=== PATIENT | female | born 1985 | race Caucasian/White ===

== ENCOUNTER 2021-01-29 18:05 | Inpatient (IN) | payer OTHER ==
[~2021-01-29] VITALS: Ht 152.4 cm; Wt 77.0 kg
[2021-01-29] MEDS ORDERED: GABA-534 PO (18:29)
[2021-01-29] MEDS ORDERED: BUPR150T8 PO (18:29)
[2021-01-29] MEDS ORDERED: TRAM50TA2 PO (18:29)
[2021-01-29] MEDS ORDERED: METH-797 PO (18:29)
[2021-01-29 18:56] LABS: BASOPHILS % (AUTO) 0.1 % (0-1); EOSINOPHILS % (AUTO) 0.1 % (0-6); HEMATOCRIT 36.6 % (35.0-45.0); HEMOGLOBIN 12.8 g/dl (12.0-16.0); MEAN CORPUSCULAR HEMOGLOBIN 32.4 PG (27.0-31.0); MEAN CORPUSCULAR HGB CONC 34.9 g/dL (33.0-36.5); MEAN CORPUSCULAR VOLUME 92.9 FL (78-98); MEAN PLATELET VOLUME 8.5 FL (7.4-10.4); MONOCYTES # (AUTO) 0.2 X10'3 (0-0.9); MONOCYTES % (AUTO) 5.8 % (2-12); NEUTROPHILS # (AUTO) 2.8 X10'3 (1.8-7.7); PLATELET COUNT 166 X10'3 (140-440); RED BLOOD COUNT 3.94 X10'6 (4.20-5.60); RED CELL DISTRIBUTION WIDTH 12.5 % (11.5-14.5); WHITE BLOOD COUNT 4.1 X10'3 (4.5-11.0)
[2021-01-29 19:14] LABS: ALANINE AMINOTRANSFERASE 70 U/L (12-78); ALBUMIN 2.6 G/DL (3.4-5.0); ALBUMIN/GLOBULIN RATIO 0.6 (1.1-1.5); ALKALINE PHOSPHATASE 104 IU/L (46-116); ANION GAP 10 (8-16); ASPARTATE AMINO TRANSFERASE 118 U/L (10-37); BILIRUBIN,TOTAL 0.4 MG/DL (0.1-1.0); BLOOD UREA NITROGEN 8 MG/DL (7-18); BUN/CREATININE RATIO 10.3 (6.6-38.0); CALCIUM 7.8 MG/DL (8.5-10.1); CHLORIDE 104 MMOL/L (99-107); CREATININE 0.78 MG/DL (0.40-0.90); GLUCOSE 100 MG/DL (70-104); SODIUM 143 MMOL/L (135-145); TOTAL CARBON DIOXIDE 29.5 MMOL/L (24-32); TOTAL PROTEIN 6.9 G/DL (6.4-8.2); eGFR 85 ML/MIN
[2021-01-29] MEDS ORDERED: dexamethasone 4mg tablet PO ONE (20:40)
[2021-01-29] MEDS ORDERED: temazepam 15mg capsule PO PRN (21:00)
[2021-01-29] MEDS ORDERED: potassium Cl 20 mEq SR tablet PO ONE (21:40)
[2021-01-29] MEDS ORDERED: potassium Cl 10 mEq/100mL bag IV ONE (21:40)
[2021-01-29] MEDS ORDERED: potassium Cl 40MEQ/1/2NS 520ml 520 ML IV PRN ×2 (23:35)
[2021-01-29] MEDS ORDERED: magnesium 4gm in 100ml NS 100 ML IV PRN (23:35)
[2021-01-29] MEDS ORDERED: ondansetron/PF 4mg/2ml inj IV PRN (23:35)
[2021-01-29] MEDS ORDERED: magnesium Cl slow-release 64mg tablet PO PRN (23:35)
[2021-01-29] MEDS ORDERED: magnesium 2GM in 50ml NS 50 ML IV PRN (23:35)
[2021-01-29] MEDS ORDERED: potassium Cl 20 mEq SR tablet PO PRN ×2 (23:35)
[2021-01-29] MEDS ORDERED: magnesium hydroxide 30ml (MOM) UD suspension PO PRN (23:35)
[2021-01-29] MEDS ORDERED: acetaminophen 325mg tablet PO PRN ×2 (23:35)
[2021-01-29] MEDS ORDERED: HYDROcodone/acetaminophen 5mg/325mg tablet PO ONE (23:45)
[2021-01-29 23:50] LABS: URINE HCG NEGATIVE (NEG)
[2021-01-30] MEDS: normal saline 1000ml 1,000 ML IV SCH (00:08)
[2021-01-30] MEDS ORDERED: PERFLUTREN PROTEIN-A MICROSPHR (Optison) 0.22 MG/ML 3ML VIAL IV PRN (00:20)
[2021-01-30] MEDS ORDERED: CefTRIAXone 2gm/D5W 50ml BAG 50 ML IV ONE (00:25)
[2021-01-30 01:26] LABS: CLARITY,URINE CLEAR (Clear); COLOR,URINE YELLOW (Yellow); GLUCOSE, URINE NEGATIVE (Neg); KETONES,URINE 15 mg/dl (Neg); OCCULT BLOOD,URINE NEGATIVE (Neg); PH,URINE 7.5 (4.8-8.0); PROTEIN,URINE NEGATIVE (Neg); UA COLLECTION TYPE NON-SPECIFIED
[2021-01-30 01:27] LABS: LEUKOCYTE ESTERASE ,URINE NEGATIVE (Neg); NITRITES, URINE NEGATIVE (Neg); UROBILINOGEN,URINE 0.2 E.U/dL (0.2-1.0)
[2021-01-30 01:47] LABS: URINE AMPHETAMINE SCREEN NEGATIVE (Neg); URINE BARBITUATE SCREEN NEGATIVE (Neg); URINE BENZODIAZEPINES SCREEN NEGATIVE (Neg); URINE CANNABINOID SCREEN NEGATIVE (Neg); URINE COCAINE SCREEN NEGATIVE (Neg); URINE METHADONE SCREEN NEGATIVE (Neg); URINE OPIATE SCREEN NEGATIVE (Neg); URINE PHENCYCLIDINE SCREEN NEGATIVE (Neg)
[2021-01-30 02:38] LABS: ABG BASE EXCESS 4.1 mmol/L (-2.0-2.0); ABG HCO3 28.2 mmol/L (22.0-26.0); ABG OXYGEN SATURATION 86.3 % (94-97); ABG PCO2 (T) 41.1 mmHg (32.0-45.0); ABG PO2 (T) 53.2 mmHg (75.0-100.0); ALLEN'S TEST POSITIVE; FCOHb 0.3 % (0.0-3.9); FLOW 3 L/min; FMetHb 0.3 % (0.0-1.5); FO2Hb 85.8 % (94-97); PATIENT TEMPERATURE 37.4; TOTAL HEMOGLOBIN 13.1 G/dl (12.0-16.0)
--- NOTE | 2021-01-30 04:10 | NUR ---
pt placed on NRB 10L due to spo2 85-87% on 6L NC. now sats 95-96%
[2021-01-30] MEDS ORDERED: BUPR-344 PO (06:41)
[2021-01-30 07:14] LABS: BASOPHILS % (AUTO) 0.1 % (0-1); EOSINOPHILS % (AUTO) 0 % (0-6); HEMATOCRIT 36.6 % (35.0-45.0); HEMOGLOBIN 12.7 g/dl (12.0-16.0); LYMPHOCYTES # (AUTO) 0.5 X10'3 (1.1-4.8); LYMPHOCYTES % (AUTO) 14.7 % (21-51); MEAN CORPUSCULAR HEMOGLOBIN 32.6 PG (27.0-31.0); MEAN CORPUSCULAR HGB CONC 34.7 g/dL (33.0-36.5); MEAN PLATELET VOLUME 8.6 FL (7.4-10.4); MONOCYTES # (AUTO) 0.1 X10'3 (0-0.9); MONOCYTES % (AUTO) 3.8 % (2-12); NEUTROPHILS # (AUTO) 2.6 X10'3 (1.8-7.7); NEUTROPHILS % (AUTO) 81.4 % (42-75); PLATELET COUNT 156 X10'3 (140-440); RED BLOOD COUNT 3.89 X10'6 (4.20-5.60); RED CELL DISTRIBUTION WIDTH 12.5 % (11.5-14.5); WHITE BLOOD COUNT 3.2 X10'3 (4.5-11.0)
[2021-01-30 07:35] LABS: ALANINE AMINOTRANSFERASE 76 U/L (12-78); ALBUMIN 2.5 G/DL (3.4-5.0); ALBUMIN/GLOBULIN RATIO 0.6 (1.1-1.5); ALKALINE PHOSPHATASE 103 IU/L (46-116); ANION GAP 9 (8-16); ASPARTATE AMINO TRANSFERASE 112 U/L (10-37); BILIRUBIN,TOTAL 0.3 MG/DL (0.1-1.0); BLOOD UREA NITROGEN 10 MG/DL (7-18); BUN/CREATININE RATIO 16.7 (6.6-38.0); CHLORIDE 108 MMOL/L (99-107); GLUCOSE 139 MG/DL (70-104); MAGNESIUM 2.5 MG/DL (1.5-2.4); POTASSIUM 4.3 MMOL/L (3.5-5.1); SODIUM 143 MMOL/L (135-145); TOTAL CARBON DIOXIDE 26.3 MMOL/L (24-32); TOTAL PROTEIN 6.8 G/DL (6.4-8.2); eGFR > 90 ML/MIN
[2021-01-30] MEDS ORDERED: heparin, porcine 5000 units/ml vial SQ SCH (08:00)
[2021-01-30] MEDS: K and/or MAG REPLACEMENT MC SCH ×2 (10:00→19:51)
[2021-01-30] MEDS ORDERED: REMDESIVIR INJ 200 MG in normal saline 100ml IV soln 60 ML IV ONE (10:55)
[2021-01-30] MEDS: buPROPion SR 150mg tablet PO SCH ×2 (11:03→21:47)
[2021-01-30] MEDS: gabapentin 400mg capsule PO SCH (11:03)
[2021-01-30 11:31] LABS: C-REACTIVE PROTEIN 6.64 MG/DL (0.0-0.5); LACTATE DEHYDROGENASE 807 U/L (81-234)
[2021-01-30] MEDS: dexamethasone 6 MG/D5W 100ml IV.soln (total 101.5ml) IV SCH ×4 (12:42→19:46)
[2021-01-30] MEDS: traMADol 50MG tablet PO SCH ×3 (13:48→21:00)
--- NOTE | 2021-01-30 18:30 | NUR ---
ASSUMED CARE OF PT. PT REPORTS INDIGESTION AND WISHES TO EAT SOMETHING. SHE ALSO NOTES CHRONIC NERVE PAIN ON THIGH.
[2021-01-30] MEDS: mag hydrox/Alum hydrox/simeth 30ml oral suspension PO PRN (19:45)
[2021-01-30] MEDS: enoxaparin 40mg/0.4ml syringe SUBCUT SCH (19:53)
[2021-01-30] MEDS ORDERED: dexamethasone 4mg/ml inj IV SCH ×2 (20:00)
--- NOTE | 2021-01-30 20:04 | NUR ---
PT SITTING UP EATING DINNER. PT MEDICATED. NO OTHER COMPLAINTS AT PRESENT.
--- NOTE | 2021-01-30 21:20 | NUR ---
SPOKE TO DR LENZ OVER PT'S CHRONIC THIGH PAIN. PT IS CONCERNED SHE IS UNABLE TO PRONE D/T HER PAIN AND STATES THAT HER TRAMADOL DOSES ARE NOT WORKING. DR LENZ GAVE A VERBAL ORDER FOR NORCO 10 PO Q4 PRN FOR PAIN.
--- NOTE | 2021-01-30 22:45 | NUR ---
Got report from KOJO Donnelly from ER. S. Coming up on a bed.
[2021-01-31] VITALS (8 sets, daily range): BP systolic 86–113; BP diastolic 44–66
[2021-01-31] MEDS ORDERED: HYDROcodone/acetaminophen 10/325mg tab PO PRN
[2021-01-31] MEDS: HYDROcodone/acetaminophen 10/325mg tab PO PRN ×5 (04:15→22:40)
[2021-01-31] MEDS: normal saline 1000ml 1,000 ML IV SCH (04:16)
--- NOTE | 2021-01-31 06:38 | NUR ---
Patient in room ORTHO 4012a. I have received report from KOJO De La O and had the opportunity to ask questions and assume patient care.
--- NOTE | 2021-01-31 06:42 | NUR ---
Problems reprioritized. Patient report given, questions answered & plan of care reviewed with KOJO Katz.
[2021-01-31 06:48] LABS: BASOPHILS % (AUTO) 0.1 % (0-1); EOSINOPHILS % (AUTO) 0 % (0-6); HEMATOCRIT 36.8 % (35.0-45.0); HEMOGLOBIN 12.7 g/dl (12.0-16.0); LYMPHOCYTES # (AUTO) 0.8 X10'3 (1.1-4.8); LYMPHOCYTES % (AUTO) 10.2 % (21-51); MEAN CORPUSCULAR HEMOGLOBIN 32.4 PG (27.0-31.0); MEAN CORPUSCULAR HGB CONC 34.6 g/dL (33.0-36.5); MEAN CORPUSCULAR VOLUME 93.7 FL (78-98); MEAN PLATELET VOLUME 8.4 FL (7.4-10.4); MONOCYTES # (AUTO) 0.4 X10'3 (0-0.9); MONOCYTES % (AUTO) 5.1 % (2-12); NEUTROPHILS # (AUTO) 6.7 X10'3 (1.8-7.7); NEUTROPHILS % (AUTO) 84.6 % (42-75); PLATELET COUNT 158 X10'3 (140-440); RED BLOOD COUNT 3.93 X10'6 (4.20-5.60); RED CELL DISTRIBUTION WIDTH 12.6 % (11.5-14.5); WHITE BLOOD COUNT 7.9 X10'3 (4.5-11.0)
[2021-01-31 07:12] LABS: ALANINE AMINOTRANSFERASE 122 U/L (12-78); ALBUMIN 2.4 G/DL (3.4-5.0); ALBUMIN/GLOBULIN RATIO 0.6 (1.1-1.5); ALKALINE PHOSPHATASE 108 IU/L (46-116); ANION GAP 8 (8-16); ASPARTATE AMINO TRANSFERASE 141 U/L (10-37); BILIRUBIN,TOTAL 0.3 MG/DL (0.1-1.0); BLOOD UREA NITROGEN 11 MG/DL (7-18); C-REACTIVE PROTEIN 3.29 MG/DL (0.0-0.5); CHLORIDE 106 MMOL/L (99-107); CREATININE 0.61 MG/DL (0.40-0.90); GLUCOSE 137 MG/DL (70-104); MAGNESIUM 2.5 MG/DL (1.5-2.4); POTASSIUM 3.7 MMOL/L (3.5-5.1); SODIUM 141 MMOL/L (135-145); TOTAL CARBON DIOXIDE 26.6 MMOL/L (24-32); TOTAL PROTEIN 6.5 G/DL (6.4-8.2); eGFR > 90 ML/MIN
[2021-01-31 07:55] LABS: D-DIMER > 35.20 MG/L FEU (0-0.50)
[2021-01-31] MEDS: K and/or MAG REPLACEMENT MC SCH ×2 (08:00→19:23)
[2021-01-31] MEDS: mag hydrox/Alum hydrox/simeth 30ml oral suspension PO PRN ×2 (08:12→18:57)
[2021-01-31] MEDS: dexamethasone 6 MG/D5W 100ml IV.soln (total 101.5ml) IV SCH ×4 (08:12→19:59)
[2021-01-31] MEDS: buPROPion SR 150mg tablet PO SCH ×2 (08:13→20:00)
[2021-01-31] MEDS: enoxaparin 40mg/0.4ml syringe SUBCUT SCH (08:13)
[2021-01-31] MEDS: gabapentin 400mg capsule PO SCH (08:13)
[2021-01-31] MEDS: REMDESIVIR INJ 100 MG in normal saline 100ml IV soln 80 ML IV SCH (09:58)
[2021-01-31] MEDS ORDERED: enoxaparin 40mg/0.4ml syringe SQ ONE (14:10)
[2021-01-31 14:54] LABS: ABG BASE EXCESS 1.1 mmol/L (-2.0-2.0); ABG HCO3 24.6 mmol/L (22.0-26.0); ABG OXYGEN SATURATION 95.2 % (94-97); ABG PCO2 (T) 36.3 mmHg (32.0-45.0); ABG PO2 (T) 77.6 mmHg (75.0-100.0); ALLEN'S TEST POSITIVE; FCOHb 0.3 % (0.0-3.9); FLOW 15 L/min; FMetHb 0.3 % (0.0-1.5); FO2Hb 94.6 % (94-97); PATIENT TEMPERATURE 37.6; TOTAL HEMOGLOBIN 13.1 G/dl (12.0-16.0)
[2021-01-31] MEDS ORDERED: BARICITINIB 2 MG TABLET PO SCH ×2 (15:50→16:31)
--- NOTE | 2021-01-31 18:23 | NUR ---
Problems reprioritized. Patient report given, questions answered & plan of care reviewed with KOJO Nina.
--- NOTE | 2021-01-31 18:42 | NUR ---
Patient in room ORTHO 4012. I have received report from Gianna VARMA and had the opportunity to ask questions and assume patient care.
[2021-01-31] MEDS: enoxaparin 80mg/0.8ml syringe SUBCUT SCH (20:00)
[2021-02-01 02:00] VITALS: BP 112/64
[2021-02-01] MEDS: HYDROcodone/acetaminophen 10/325mg tab PO PRN ×4 (04:04→20:34)
--- NOTE | 2021-02-01 06:14 | NUR ---
Problems reprioritized. Patient report given, questions answered & plan of care reviewed with Stefanie VARMA. Addendum: 02/01/21 at 0617 by Kelle Randle RN aMry
[2021-02-01 06:30] VITALS: BP 104/59
[2021-02-01 06:59] LABS: BASOPHILS % (AUTO) 0 % (0-1); EOSINOPHILS % (AUTO) 0 % (0-6); HEMATOCRIT 36.7 % (35.0-45.0); HEMOGLOBIN 12.8 g/dl (12.0-16.0); LYMPHOCYTES # (AUTO) 0.8 X10'3 (1.1-4.8); LYMPHOCYTES % (AUTO) 8.5 % (21-51); MEAN CORPUSCULAR HEMOGLOBIN 32.3 PG (27.0-31.0); MEAN CORPUSCULAR HGB CONC 34.9 g/dL (33.0-36.5); MEAN CORPUSCULAR VOLUME 92.7 FL (78-98); MEAN PLATELET VOLUME 8.7 FL (7.4-10.4); MONOCYTES # (AUTO) 0.5 X10'3 (0-0.9); MONOCYTES % (AUTO) 5.4 % (2-12); NEUTROPHILS # (AUTO) 8.1 X10'3 (1.8-7.7); NEUTROPHILS % (AUTO) 86.1 % (42-75); PLATELET COUNT 155 X10'3 (140-440); RED BLOOD COUNT 3.96 X10'6 (4.20-5.60); RED CELL DISTRIBUTION WIDTH 12.5 % (11.5-14.5); WHITE BLOOD COUNT 9.4 X10'3 (4.5-11.0)
[2021-02-01 07:22] LABS: ALANINE AMINOTRANSFERASE 135 U/L (12-78); ALBUMIN 2.4 G/DL (3.4-5.0); ALBUMIN/GLOBULIN RATIO 0.6 (1.1-1.5); ALKALINE PHOSPHATASE 124 IU/L (46-116); ANION GAP 10 (8-16); ASPARTATE AMINO TRANSFERASE 116 U/L (10-37); BILIRUBIN,TOTAL 0.3 MG/DL (0.1-1.0); BLOOD UREA NITROGEN 11 MG/DL (7-18); BUN/CREATININE RATIO 17.5 (6.6-38.0); C-REACTIVE PROTEIN 1.45 MG/DL (0.0-0.5); CALCIUM 7.8 MG/DL (8.5-10.1); CHLORIDE 107 MMOL/L (99-107); CREATININE 0.63 MG/DL (0.40-0.90); D-DIMER > 35.20 MG/L FEU (0-0.50); GLUCOSE 129 MG/DL (70-104); MAGNESIUM 2.4 MG/DL (1.5-2.4); POTASSIUM 3.7 MMOL/L (3.5-5.1); SODIUM 145 MMOL/L (135-145); TOTAL CARBON DIOXIDE 27.7 MMOL/L (24-32); TOTAL PROTEIN 6.3 G/DL (6.4-8.2); eGFR > 90 ML/MIN
[2021-02-01] MEDS: buPROPion SR 150mg tablet PO SCH ×2 (07:52→20:33)
[2021-02-01] MEDS: gabapentin 400mg capsule PO SCH (07:52)
[2021-02-01] MEDS: dexamethasone 6 MG/D5W 100ml IV.soln (total 101.5ml) IV SCH ×4 (07:52→20:33)
[2021-02-01] MEDS: enoxaparin 80mg/0.8ml syringe SUBCUT SCH ×2 (07:53→20:33)
[2021-02-01] MEDS: K and/or MAG REPLACEMENT MC SCH ×2 (07:53→19:16)
[2021-02-01] MEDS: REMDESIVIR INJ 100 MG in normal saline 100ml IV soln 80 ML IV SCH (08:00)
[2021-02-01] MEDS: mag hydrox/Alum hydrox/simeth 30ml oral suspension PO PRN ×2 (08:46→19:18)
--- NOTE | 2021-02-01 08:52 | NUR ---
scanner on computer not scanning meds into [employer], checked med prior to admin
--- NOTE | 2021-02-01 10:26 | NUR ---
scanner on computer not scanning meds into [employer], checked medication prior to admin
[2021-02-01 11:01] VITALS: BP 120/57
--- NOTE | 2021-02-01 11:30 | NUR ---
patient proning herself appropriately.
--- NOTE | 2021-02-01 14:55 | NUR ---
Initial: Pt admit DX COVID-19 PNA, chronic pain syndrome, anxiety, and R popliteal DVT per EMR. No PO documentation on regular diet first 2 days of admit w/ nutrition intake intervention added 01/31. Pt PO less than 35% avg documented meals past 1.5 days on 13L HFNC per EMR. RD recommends Ensure Enlive TIDWM to assist protein/kcal intake; MD notified. LBM 01/31. Will continue to monitor for PO trends and additional nutrition intervention needs this admit. Rec: 1. continue regular diet; encourage PO 2. Ensure Enlive TIDWM; pending MD verification in EMR 3. routine bowel care 4. scaled wt this admit; subsequent weekly wts Addendum: 02/01/21 at [address] Amended: Links added. Addendum: 02/01/21 at [address] Rec: 1. continue regular diet; encourage PO 2. Ensure Enlive TIDWM; pending MD verification in EMR. IF out of Ensure Enlive substitute using Glucerna ONS 3. routine bowel care 4. scaled wt this admit; subsequent weekly wts
--- NOTE | 2021-02-01 15:13 | NUR ---
scanner on computer not scanning meds into [employer], checked med prior to admin
--- NOTE | 2021-02-01 15:43 | NUR ---
PAGER ID: [phone] MESSAGE: [phone] Lupe E: patient requesting to see you since she was sleeping when you rounded. thanks, [phone] Addendum: 02/01/21 at 1648 by Amber Boothe RN Patient was awake. Once I explained conversation to her, she remembered.
[2021-02-01 18:00] VITALS: BP 117/66
[2021-02-01] MEDS: lactose-reduced food (Ensure Enlive) - 237ml bottle PO SCH (18:00)
--- NOTE | 2021-02-01 18:08 | NUR ---
Problems reprioritized. Patient report given, questions answered & plan of care reviewed with KOJO Nina.
--- NOTE | 2021-02-01 18:44 | NUR ---
Patient in room ORTHO 4012. I have received report from Amber VARMA and had the opportunity to ask questions and assume patient care.
[2021-02-01 22:00] VITALS: BP 116/60
[2021-02-02 02:10] VITALS: BP 99/50
--- NOTE | 2021-02-02 05:53 | NUR ---
Tele called pt is currently in a second degree type two heart block as of 537. (Previously in SR to SB). Pt has no new pain or discomfort at this time. BP 115/95 HR 47. Hospitalist called using SBAR. advised to hold new med that was started yesterday 02/01. Consult day time hospitalist or Infection control doctor. To address if this med should be continued. Will place orders.
[2021-02-02 06:00] VITALS: BP 109/54
--- NOTE | 2021-02-02 06:30 | NUR ---
Tele called pt is now in a third degree heart block. Called - came to bedside. Did an EKG showing Sinus Deni with a HR of 47. Pt is currently asymptomatic, states she does not feel any different. MD reviewed the strips from tele showing third degree heart block. Will continue to monitor pt, MD will pass this information onto day hospitalist. Orders placed to stop new med. OLUMIANT.
--- NOTE | 2021-02-02 07:13 | NUR ---
Problems reprioritized. Patient report given, questions answered & plan of care reviewed with Christina VARMA.
--- NOTE | 2021-02-02 07:17 | NUR ---
Patient in room ORTHO 4012. I have received report from KOJO Nina and had the opportunity to ask questions and assume patient care.
[2021-02-02 07:31] LABS: BASOPHILS % (AUTO) 0 % (0-1); EOSINOPHILS % (AUTO) 0.1 % (0-6); HEMATOCRIT 39.8 % (35.0-45.0); HEMOGLOBIN 13.6 g/dl (12.0-16.0); LYMPHOCYTES # (AUTO) 1.1 X10'3 (1.1-4.8); LYMPHOCYTES % (AUTO) 9.8 % (21-51); MEAN CORPUSCULAR HEMOGLOBIN 31.7 PG (27.0-31.0); MEAN CORPUSCULAR HGB CONC 34.3 g/dL (33.0-36.5); MEAN CORPUSCULAR VOLUME 92.3 FL (78-98); MEAN PLATELET VOLUME 8.4 FL (7.4-10.4); MONOCYTES # (AUTO) 0.6 X10'3 (0-0.9); NEUTROPHILS # (AUTO) 9.6 X10'3 (1.8-7.7); NEUTROPHILS % (AUTO) 85.1 % (42-75); PLATELET COUNT 146 X10'3 (140-440); RED BLOOD COUNT 4.31 X10'6 (4.20-5.60); RED CELL DISTRIBUTION WIDTH 12.3 % (11.5-14.5); WHITE BLOOD COUNT 11.3 X10'3 (4.5-11.0)
[2021-02-02 07:55] LABS: ALANINE AMINOTRANSFERASE 134 U/L (12-78); ALBUMIN 2.8 G/DL (3.4-5.0); ALBUMIN/GLOBULIN RATIO 0.7 (1.1-1.5); ALKALINE PHOSPHATASE 153 IU/L (46-116); ANION GAP 9 (8-16); ASPARTATE AMINO TRANSFERASE 84 U/L (10-37); BILIRUBIN,TOTAL 0.5 MG/DL (0.1-1.0); BLOOD UREA NITROGEN 14 MG/DL (7-18); BUN/CREATININE RATIO 21.9 (6.6-38.0); C-REACTIVE PROTEIN 0.86 MG/DL (0.0-0.5); CALCIUM 8.1 MG/DL (8.5-10.1); CHLORIDE 106 MMOL/L (99-107); CREATININE 0.64 MG/DL (0.40-0.90); GLUCOSE 103 MG/DL (70-104); MAGNESIUM 2.4 MG/DL (1.5-2.4); POTASSIUM 3.6 MMOL/L (3.5-5.1); SODIUM 142 MMOL/L (135-145); TOTAL CARBON DIOXIDE 26.7 MMOL/L (24-32); TOTAL PROTEIN 6.9 G/DL (6.4-8.2); eGFR > 90 ML/MIN
[2021-02-02 07:58] LABS: D-DIMER > 35.20 MG/L FEU (0-0.50)
[2021-02-02] MEDS: lactose-reduced food (Ensure Enlive) - 237ml bottle PO SCH ×3 (08:00→18:01)
[2021-02-02] MEDS: K and/or MAG REPLACEMENT MC SCH ×2 (08:00→19:59)
[2021-02-02] MEDS: dexamethasone 6 MG/D5W 100ml IV.soln (total 101.5ml) IV SCH ×2 (08:16)
[2021-02-02] MEDS: gabapentin 400mg capsule PO SCH (08:37)
[2021-02-02] MEDS: REMDESIVIR INJ 100 MG in normal saline 100ml IV soln 80 ML IV SCH (08:37)
[2021-02-02] MEDS: buPROPion SR 150mg tablet PO SCH ×2 (08:37→20:06)
[2021-02-02] MEDS: enoxaparin 80mg/0.8ml syringe SUBCUT SCH ×2 (08:38→20:06)
[2021-02-02] MEDS: HYDROcodone/acetaminophen 10/325mg tab PO PRN ×4 (09:28→22:33)
[2021-02-02 10:00] VITALS: BP 104/48
[2021-02-02] MEDS ORDERED: potassium Cl 20 mEq SR tablet PO ONE (13:20)
[2021-02-02 13:55] LABS: PHOSPHORUS 3.5 MG/DL (2.3-4.5)
[2021-02-02 14:00] VITALS: BP 95/37
--- NOTE | 2021-02-02 14:00 | NUR ---
PAGER ID: [phone] MESSAGE: Christina O/N [phone] akil Andrade [id number] EKG shows sinus souleymane, please call with location to have you sign, thank you :) Addendum: 02/02/21 at 1416 by Christina Perez RN sales professional bilingual made aware of EKG completion and hospitalist notification.
[2021-02-02 18:00] VITALS: BP 98/59
--- NOTE | 2021-02-02 18:21 | NUR ---
Problems reprioritized. Patient report given, questions answered & plan of care reviewed with KOJO Nina.
--- NOTE | 2021-02-02 18:30 | NUR ---
Patient in room ORTHO 4012. I have received report from Christina VARMA and had the opportunity to ask questions and assume patient care.
[2021-02-02] MEDS: dexamethasone inj 4 MG in dextrose 5%-water 100 ML IV SCH (20:05)
[2021-02-02 22:00] VITALS: BP 118/50
[2021-02-02] MEDS: normal saline 1000ml 1,000 ML IV SCH (23:35)
[2021-02-03 02:00] VITALS: BP 122/69
[2021-02-03] MEDS: HYDROcodone/acetaminophen 10/325mg tab PO PRN ×3 (03:57→14:42)
[2021-02-03 06:00] VITALS: BP 103/53
--- NOTE | 2021-02-03 06:23 | NUR ---
Problems reprioritized. Patient report given, questions answered & plan of care reviewed with Kaci VARMA.
--- NOTE | 2021-02-03 06:40 | NUR ---
Patient in room ORTHO 4012A. I have received report from KOJO RAO and had the opportunity to ask questions and assume patient care.
[2021-02-03 07:20] LABS: BASOPHILS % (AUTO) 0.1 % (0-1); EOSINOPHILS # (AUTO) 0.1 X10'3 (0-0.9); EOSINOPHILS % (AUTO) 0.4 % (0-6); HEMOGLOBIN 14.2 g/dl (12.0-16.0); LYMPHOCYTES # (AUTO) 0.9 X10'3 (1.1-4.8); LYMPHOCYTES % (AUTO) 7.2 % (21-51); MEAN CORPUSCULAR HEMOGLOBIN 32.2 PG (27.0-31.0); MEAN CORPUSCULAR HGB CONC 34.5 g/dL (33.0-36.5); MEAN CORPUSCULAR VOLUME 93.5 FL (78-98); MEAN PLATELET VOLUME 9.1 FL (7.4-10.4); MONOCYTES # (AUTO) 0.4 X10'3 (0-0.9); MONOCYTES % (AUTO) 3.2 % (2-12); NEUTROPHILS # (AUTO) 11.5 X10'3 (1.8-7.7); NEUTROPHILS % (AUTO) 89.1 % (42-75); PLATELET COUNT 125 X10'3 (140-440); RED BLOOD COUNT 4.39 X10'6 (4.20-5.60); RED CELL DISTRIBUTION WIDTH 12.5 % (11.5-14.5); WHITE BLOOD COUNT 12.9 X10'3 (4.5-11.0)
[2021-02-03 07:48] LABS: ALANINE AMINOTRANSFERASE 109 U/L (12-78); ALBUMIN 2.6 G/DL (3.4-5.0); ALBUMIN/GLOBULIN RATIO 0.6 (1.1-1.5); ALKALINE PHOSPHATASE 150 IU/L (46-116); ANION GAP 11 (8-16); ASPARTATE AMINO TRANSFERASE 71 U/L (10-37); BILIRUBIN,TOTAL 0.5 MG/DL (0.1-1.0); BLOOD UREA NITROGEN 15 MG/DL (7-18); BUN/CREATININE RATIO 26.3 (6.6-38.0); C-REACTIVE PROTEIN 1.37 MG/DL (0.0-0.5); CALCIUM 8.2 MG/DL (8.5-10.1); CHLORIDE 104 MMOL/L (99-107); CREATININE 0.57 MG/DL (0.40-0.90); GLUCOSE 102 MG/DL (70-104); MAGNESIUM 2.6 MG/DL (1.5-2.4); POTASSIUM 3.7 MMOL/L (3.5-5.1); SODIUM 136 MMOL/L (135-145); TOTAL CARBON DIOXIDE 21.5 MMOL/L (24-32); TOTAL PROTEIN 6.8 G/DL (6.4-8.2); eGFR > 90 ML/MIN
[2021-02-03] MEDS ORDERED: gabapentin 100mg capsule PO SCH (08:00)
[2021-02-03] MEDS: K and/or MAG REPLACEMENT MC SCH ×2 (08:00→20:00)
[2021-02-03 08:15] LABS: PLATELET ESTIMATE DECREASED; TOTAL CELLS COUNTED 100
[2021-02-03] MEDS: REMDESIVIR INJ 100 MG in normal saline 100ml IV soln 80 ML IV SCH (08:18)
[2021-02-03] MEDS: buPROPion SR 150mg tablet PO SCH ×2 (08:24→20:17)
[2021-02-03] MEDS: lactose-reduced food (Ensure Enlive) - 237ml bottle PO SCH ×3 (08:32→18:00)
[2021-02-03] MEDS: enoxaparin 80mg/0.8ml syringe SUBCUT SCH ×2 (08:32→20:19)
[2021-02-03 09:18] LABS: D-DIMER 34.87 MG/L FEU (0-0.50)
[2021-02-03] MEDS: dexamethasone inj 4 MG in dextrose 5%-water 100 ML IV SCH ×2 (09:34→20:18)
[2021-02-03 10:00] VITALS: BP 86/42
[2021-02-03] MEDS ORDERED: HYDROmorphone inj. 0.5 MG/0.5 ML DISP.SYRIN IV PRN (15:45)
[2021-02-03] MEDS ORDERED: ALBUTEROL INHALER 1 PUFF/90 MCG INHALER IH PRN (15:45)
--- NOTE | 2021-02-03 17:30 | NUR ---
Patient in room ORTHO 4012. I have received report from KOJO Morin and had the opportunity to ask questions and assume patient care.
--- NOTE | 2021-02-03 17:41 | NUR ---
Problems reprioritized. Patient report given, questions answered & plan of care reviewed with KOJO CRUZ.
[2021-02-03 18:00] VITALS: BP 102/65
--- NOTE | 2021-02-03 18:00 | NUR ---
Problems reprioritized. Patient report given, questions answered & plan of care reviewed with KOJO Jenkins.
--- NOTE | 2021-02-03 18:22 | NUR ---
Patient in room ORTHO 4012. I have received report from Miguelina VARMA and had the opportunity to ask questions and assume patient care.
[2021-02-03 19:21] LABS: UA COLLECTION TYPE CLN CATCH MIDSTREAM
[2021-02-03 19:22] LABS: CLARITY,URINE Clear (Clear); COLOR,URINE YELLOW (Yellow); GLUCOSE, URINE NEGATIVE (Neg); KETONES,URINE NEGATIVE (Neg); LEUKOCYTE ESTERASE ,URINE NEGATIVE (Neg); NITRITES, URINE NEGATIVE (Neg); OCCULT BLOOD,URINE NEGATIVE (Neg); PROTEIN,URINE NEGATIVE (Neg); UROBILINOGEN,URINE 0.2 E.U/dL (0.2-1.0)
[2021-02-03] MEDS: gabapentin 300mg capsule PO SCH (20:17)
[2021-02-03] MEDS: guaiFENesin ER 600mg tablet PO SCH (20:18)
[2021-02-03] MEDS: LIDOcaine 5% patch TP SCH (20:22)
[2021-02-03] MEDS: oxyCODONE/APAP 5-325mg tablet PO PRN (21:14)
[2021-02-03 22:00] VITALS: BP 116/55
[2021-02-04] MEDS: oxyCODONE/APAP 5-325mg tablet PO PRN ×3 (01:19→09:26)
[2021-02-04 02:00] VITALS: BP 128/53
[2021-02-04 06:00] VITALS: BP 137/56
--- NOTE | 2021-02-04 06:36 | NUR ---
Patient in room ORTHO 4012. I have received report from Alice VARMA and had the opportunity to ask questions and assume patient care.
--- NOTE | 2021-02-04 06:41 | NUR ---
Problems reprioritized. Patient report given, questions answered & plan of care reviewed with Juli VARMA.
[2021-02-04] MEDS: lactose-reduced food (Ensure Enlive) - 237ml bottle PO SCH ×3 (07:46→18:36)
[2021-02-04] MEDS: buPROPion SR 150mg tablet PO SCH ×2 (07:58→20:21)
[2021-02-04] MEDS: gabapentin 300mg capsule PO SCH ×2 (07:58→20:21)
[2021-02-04] MEDS: guaiFENesin ER 600mg tablet PO SCH ×2 (07:58→20:21)
[2021-02-04] MEDS: dexamethasone inj 4 MG in dextrose 5%-water 100 ML IV SCH (07:58)
[2021-02-04] MEDS: enoxaparin 80mg/0.8ml syringe SUBCUT SCH ×2 (07:59→20:21)
[2021-02-04] MEDS: K and/or MAG REPLACEMENT MC SCH ×2 (08:00→20:00)
[2021-02-04 08:34] LABS: D-DIMER 26.98 MG/L FEU (0-0.50)
[2021-02-04 08:55] LABS: C-REACTIVE PROTEIN 4.63 MG/DL (0.0-0.5); MAGNESIUM 2.4 MG/DL (1.5-2.4)
[2021-02-04] MEDS: ALBUTEROL INHALER 1 PUFF/90 MCG INHALER IH SCH ×5 (09:00→23:23)
[2021-02-04 10:00] VITALS: BP 92/51
[2021-02-04] MEDS: oxyCODONE/APAP 10/325mg tablet PO PRN ×3 (14:15→22:20)
[2021-02-04 15:00] VITALS: BP 88/53
--- NOTE | 2021-02-04 16:33 | NUR ---
promotional table spacer PAGER ID: [phone] MESSAGE: Selena [phone] re: Ami Lupe. Pt blood pressure 88/53, HR 85. Pt asymptomatic. pt is also drinking a lot of water.
--- NOTE | 2021-02-04 16:39 | NUR ---
Received call back from Dr. Dotson. No new orders received. Will continue to monitor pt's blood pressure and signs and symptoms of hypotension.
[2021-02-04 18:00] VITALS: BP 101/57
--- NOTE | 2021-02-04 18:33 | NUR ---
Patient in room ORTHO 4012. I have received report from Juli VARMA and had the opportunity to ask questions and assume patient care.
[2021-02-04] MEDS: methylPREDNISolone sod succ/PF 40mg inj. IV SCH (18:35)
[2021-02-04] MEDS: LIDOcaine 5% patch TP SCH (20:23)
[2021-02-04 22:00] VITALS: BP 111/58
[2021-02-04] MEDS: normal saline 1000ml 1,000 ML IV SCH (22:03)
[2021-02-05] MEDS: methylPREDNISolone sod succ/PF 40mg inj. IV SCH ×3 (00:11→16:50)
[2021-02-05 02:00] VITALS: BP 105/44
[2021-02-05] MEDS: oxyCODONE/APAP 10/325mg tablet PO PRN ×3 (02:07→12:41)
--- NOTE | 2021-02-05 06:39 | NUR ---
Problems reprioritized. Patient report given, questions answered & plan of care reviewed with Maggy VARMA.
[2021-02-05] MEDS: ALBUTEROL INHALER 1 PUFF/90 MCG INHALER IH SCH ×5 (07:00→22:43)
[2021-02-05 07:52] LABS: C-REACTIVE PROTEIN 4.66 MG/DL (0.0-0.5); MAGNESIUM 2.3 MG/DL (1.5-2.4)
[2021-02-05 07:59] LABS: D-DIMER 14.05 MG/L FEU (0-0.50)
[2021-02-05 08:00] VITALS: BP 91/22
[2021-02-05] MEDS: K and/or MAG REPLACEMENT MC SCH ×2 (08:00→20:00)
[2021-02-05] MEDS: guaiFENesin ER 600mg tablet PO SCH ×2 (08:50→20:45)
[2021-02-05] MEDS: buPROPion SR 150mg tablet PO SCH ×2 (08:51→20:45)
--- NOTE | 2021-02-05 08:54 | NUR ---
Reassessment: Pt w/ moderate PO intake, avg 47% x 8 meals on Regular diet and 78% x 7 ONS meeting nutrient needs at this time. Pt currently on 13L high flow oxygen. LBM 02/04 w/ no bowel care. No new nutrition intervention implemented at this time, will continue to monitor. Rec: 1. continue regular diet; encourage PO 2. Ensure Enlive TIDWM; IF out of Ensure Enlive substitute using Glucerna ONS 3. Bowel care per rx 4. scaled wt this admit; subsequent weekly wts Addendum: 02/05/21 at [address] Amended: Links added.
[2021-02-05] MEDS: LIDOcaine 5% patch TP SCH (08:55)
[2021-02-05] MEDS: enoxaparin 80mg/0.8ml syringe SUBCUT SCH ×2 (08:55→20:45)
[2021-02-05] MEDS: lactose-reduced food (Ensure Enlive) - 237ml bottle PO SCH ×3 (08:56→18:50)
[2021-02-05] MEDS: gabapentin 300mg capsule PO SCH ×2 (08:57→20:44)
[2021-02-05 10:02] LABS: BASOPHILS % (AUTO) 0.1 % (0-1); EOSINOPHILS % (AUTO) 0 % (0-6); HEMATOCRIT 41.2 % (35.0-45.0); LYMPHOCYTES # (AUTO) 0.8 X10'3 (1.1-4.8); LYMPHOCYTES % (AUTO) 4.5 % (21-51); MEAN CORPUSCULAR HEMOGLOBIN 31.9 PG (27.0-31.0); MEAN CORPUSCULAR HGB CONC 34.1 g/dL (33.0-36.5); MEAN CORPUSCULAR VOLUME 93.4 FL (78-98); MONOCYTES # (AUTO) 0.5 X10'3 (0-0.9); MONOCYTES % (AUTO) 2.8 % (2-12); NEUTROPHILS # (AUTO) 16.8 X10'3 (1.8-7.7); NEUTROPHILS % (AUTO) 92.6 % (42-75); PLATELET COUNT 150 X10'3 (140-440); RED BLOOD COUNT 4.41 X10'6 (4.20-5.60); RED CELL DISTRIBUTION WIDTH 12.7 % (11.5-14.5); WHITE BLOOD COUNT 18.1 X10'3 (4.5-11.0)
[2021-02-05 10:12] LABS: ALANINE AMINOTRANSFERASE 69 U/L (12-78); ALBUMIN 2.8 G/DL (3.4-5.0); ALBUMIN/GLOBULIN RATIO 0.6 (1.1-1.5); ALKALINE PHOSPHATASE 128 IU/L (46-116); ANION GAP 14 (8-16); ASPARTATE AMINO TRANSFERASE 44 U/L (10-37); BILIRUBIN,TOTAL 0.5 MG/DL (0.1-1.0); BLOOD UREA NITROGEN 13 MG/DL (7-18); BUN/CREATININE RATIO 17.3 (6.6-38.0); CALCIUM 8.7 MG/DL (8.5-10.1); CHLORIDE 101 MMOL/L (99-107); CREATININE 0.75 MG/DL (0.40-0.90); GLUCOSE 140 MG/DL (70-104); POTASSIUM 4.4 MMOL/L (3.5-5.1); SODIUM 139 MMOL/L (135-145); TOTAL CARBON DIOXIDE 23.8 MMOL/L (24-32); TOTAL PROTEIN 7.6 G/DL (6.4-8.2); eGFR 88 ML/MIN
[2021-02-05 10:38] LABS: BURR CELLS 1+; PLATELET ESTIMATE NORMAL; TOTAL CELLS COUNTED 100; TOXIC GRANULATION 1+
[2021-02-05 11:00] VITALS: BP 104/51
[2021-02-05] MEDS: oxyCODONE SR 10mg (sust. release) tab PO SCH ×2 (13:43→21:57)
[2021-02-05] MEDS ORDERED: oxyCODONE/APAP 10/325mg tablet PO SCH (16:30)
--- NOTE | 2021-02-05 19:22 | NUR ---
REPORT GIVEN TO MEMO RN, PT AWAKE IN BED. SAT IS 94% ON 12 L. ALL QUESTIONS ANSWERED. PAIN BETTER CONTROLLED.
[2021-02-05 19:30] VITALS: BP 104/53
[2021-02-05] MEDS: Melatonin 3mg tablet PO SCH (20:45)
[2021-02-05] MEDS: docusate sod 100mg capsule PO SCH (20:45)
[2021-02-06] MEDS: methylPREDNISolone sod succ/PF 40mg inj. IV SCH ×4 (00:03→23:38)
[2021-02-06] MEDS: oxyCODONE/APAP 10/325mg tablet PO PRN ×3 (01:50→22:27)
[2021-02-06 02:00] VITALS: BP 112/55
[2021-02-06 07:00] VITALS: BP 91/49
[2021-02-06] MEDS: ALBUTEROL INHALER 1 PUFF/90 MCG INHALER IH SCH ×5 (07:00→23:23)
--- NOTE | 2021-02-06 07:01 | NUR ---
Patient in room ORTHO 4012. I have received report from Amanda RN and had the opportunity to ask questions and assume patient care.
[2021-02-06 07:49] LABS: BASOPHILS # (AUTO) 0.1 X10'3 (0-0.2); BASOPHILS % (AUTO) 0.3 % (0-1); EOSINOPHILS % (AUTO) 0 % (0-6); HEMATOCRIT 41.3 % (35.0-45.0); HEMOGLOBIN 14.1 g/dl (12.0-16.0); LYMPHOCYTES # (AUTO) 0.9 X10'3 (1.1-4.8); LYMPHOCYTES % (AUTO) 4.9 % (21-51); MEAN CORPUSCULAR HEMOGLOBIN 31.8 PG (27.0-31.0); MEAN CORPUSCULAR HGB CONC 34.1 g/dL (33.0-36.5); MEAN CORPUSCULAR VOLUME 93.5 FL (78-98); MEAN PLATELET VOLUME 9.6 FL (7.4-10.4); MONOCYTES # (AUTO) 0.7 X10'3 (0-0.9); MONOCYTES % (AUTO) 3.6 % (2-12); NEUTROPHILS # (AUTO) 17.2 X10'3 (1.8-7.7); NEUTROPHILS % (AUTO) 91.2 % (42-75); PLATELET COUNT 185 X10'3 (140-440); RED BLOOD COUNT 4.42 X10'6 (4.20-5.60); RED CELL DISTRIBUTION WIDTH 12.6 % (11.5-14.5); WHITE BLOOD COUNT 18.9 X10'3 (4.5-11.0)
[2021-02-06] MEDS: lactose-reduced food (Ensure Enlive) - 237ml bottle PO SCH ×3 (08:00→18:38)
[2021-02-06] MEDS: K and/or MAG REPLACEMENT MC SCH ×2 (08:00→20:00)
[2021-02-06 08:22] LABS: ALANINE AMINOTRANSFERASE 66 U/L (12-78); ALBUMIN 2.7 G/DL (3.4-5.0); ALBUMIN/GLOBULIN RATIO 0.6 (1.1-1.5); ALKALINE PHOSPHATASE 127 IU/L (46-116); ANION GAP 12 (8-16); ASPARTATE AMINO TRANSFERASE 39 U/L (10-37); BILIRUBIN,TOTAL 0.5 MG/DL (0.1-1.0); BLOOD UREA NITROGEN 18 MG/DL (7-18); BUN/CREATININE RATIO 25.4 (6.6-38.0); C-REACTIVE PROTEIN 1.98 MG/DL (0.0-0.5); CALCIUM 8.7 MG/DL (8.5-10.1); CHLORIDE 103 MMOL/L (99-107); CREATININE 0.71 MG/DL (0.40-0.90); GLUCOSE 124 MG/DL (70-104); POTASSIUM 4.7 MMOL/L (3.5-5.1); SODIUM 141 MMOL/L (135-145); TOTAL CARBON DIOXIDE 25.6 MMOL/L (24-32); TOTAL PROTEIN 7.5 G/DL (6.4-8.2); eGFR > 90 ML/MIN
[2021-02-06 08:48] LABS: PLATELET ESTIMATE NORMAL; TOTAL CELLS COUNTED 100
[2021-02-06 08:50] LABS: D-DIMER 7.93 MG/L FEU (0-0.50)
[2021-02-06] MEDS: oxyCODONE SR 10mg (sust. release) tab PO SCH ×2 (09:29→19:40)
[2021-02-06] MEDS: buPROPion SR 150mg tablet PO SCH ×2 (09:29→20:47)
[2021-02-06] MEDS: docusate sod 100mg capsule PO SCH ×2 (09:29→19:40)
[2021-02-06] MEDS: gabapentin 300mg capsule PO SCH ×2 (09:29→19:40)
[2021-02-06] MEDS: guaiFENesin ER 600mg tablet PO SCH ×2 (09:30→19:40)
[2021-02-06] MEDS: LIDOcaine 5% patch TP SCH (09:33)
[2021-02-06] MEDS: enoxaparin 80mg/0.8ml syringe SUBCUT SCH ×2 (09:34→19:41)
[2021-02-06 10:00] VITALS: BP 97/47
--- NOTE | 2021-02-06 13:44 | NUR ---
I spoke with Dr. Cordero about the 5 different vitamin supplements and if patient can take them. I told him the name of each, he said it was fine if she wanted to take them. We will have pharmacy store them.
[2021-02-06 14:00] VITALS: BP 102/52
--- NOTE | 2021-02-06 14:04 | NUR ---
Patients supplementals taken to the pharmacy for distribution according to bottle instructions. John the pharmacist will put medications in the [facility]. Patients aware.
[2021-02-06 18:30] VITALS: BP 98/43
--- NOTE | 2021-02-06 18:38 | NUR ---
Problems reprioritized. Patient report given, questions answered & plan of care reviewed with Amanda VARMA.
--- NOTE | 2021-02-06 18:40 | NUR ---
Problems reprioritized. Patient report given, questions answered & plan of care reviewed with Amanda VARMA.
[2021-02-06] MEDS: Melatonin 3mg tablet PO SCH (20:47)
[2021-02-06 22:00] VITALS: BP 101/54
[2021-02-07 02:00] VITALS: BP 92/49
[2021-02-07] MEDS: oxyCODONE/APAP 10/325mg tablet PO PRN ×3 (04:07→17:51)
[2021-02-07 06:00] VITALS: BP 106/49
--- NOTE | 2021-02-07 06:33 | NUR ---
Patient in room ORTHO 4012A. I have received report from KOJO HAMPTON and had the opportunity to ask questions and assume patient care.
[2021-02-07] MEDS: ALBUTEROL INHALER 1 PUFF/90 MCG INHALER IH SCH ×5 (07:44→23:00)
[2021-02-07] MEDS: K and/or MAG REPLACEMENT MC SCH ×2 (08:00→20:00)
[2021-02-07] MEDS: methylPREDNISolone sod succ/PF 40mg inj. IV SCH ×2 (08:22→20:15)
[2021-02-07] MEDS: docusate sod 100mg capsule PO SCH ×2 (08:24→20:16)
[2021-02-07] MEDS: lactose-reduced food (Ensure Enlive) - 237ml bottle PO SCH ×3 (08:27→18:30)
[2021-02-07] MEDS: buPROPion SR 150mg tablet PO SCH ×2 (08:30→20:16)
[2021-02-07] MEDS: guaiFENesin ER 600mg tablet PO SCH ×2 (08:30→20:15)
[2021-02-07] MEDS: gabapentin 300mg capsule PO SCH ×2 (08:30→20:15)
[2021-02-07] MEDS: oxyCODONE SR 10mg (sust. release) tab PO SCH ×2 (08:31→20:16)
[2021-02-07] MEDS: enoxaparin 80mg/0.8ml syringe SUBCUT SCH ×2 (08:32→20:16)
[2021-02-07] MEDS: SELENIUM PO SCH (08:33)
[2021-02-07] MEDS: VITAMIN CODE PO SCH (08:33)
[2021-02-07] MEDS: QUERCETIN WITH BROMELAIN PO SCH (08:33)
[2021-02-07] MEDS: NAC PO SCH (08:33)
[2021-02-07] MEDS: [UNRECOGNIZED DRUG - OTHER] PO SCH (08:35)
[2021-02-07] MEDS: LIDOcaine 5% patch TP SCH (08:37)
[2021-02-07 10:00] VITALS: BP 112/63
[2021-02-07 14:00] VITALS: BP 122/66
--- NOTE | 2021-02-07 18:16 | NUR ---
Problems reprioritized. Patient report given, questions answered & plan of care reviewed with KOJO HAMPTON.
[2021-02-07 18:20] VITALS: BP 96/55
[2021-02-07] MEDS: Melatonin 3mg tablet PO SCH (20:15)
[2021-02-07 22:00] VITALS: BP 107/48
[2021-02-08] MEDS: oxyCODONE/APAP 10/325mg tablet PO PRN ×2 (00:50→08:21)
[2021-02-08 02:00] VITALS: BP 101/58
[2021-02-08 06:00] VITALS: BP 103/50
--- NOTE | 2021-02-08 06:36 | NUR ---
Patient in room ORTHO 4012A. I have received report from KOJO HAMPTON and had the opportunity to ask questions and assume patient care.
[2021-02-08] MEDS: K and/or MAG REPLACEMENT MC SCH (08:00)
[2021-02-08] MEDS: buPROPion SR 150mg tablet PO SCH (08:19)
[2021-02-08] MEDS: docusate sod 100mg capsule PO SCH (08:19)
[2021-02-08] MEDS: guaiFENesin ER 600mg tablet PO SCH (08:19)
[2021-02-08] MEDS: gabapentin 300mg capsule PO SCH (08:20)
[2021-02-08] MEDS: lactose-reduced food (Ensure Enlive) - 237ml bottle PO SCH ×2 (08:20→13:00)
[2021-02-08] MEDS: oxyCODONE SR 10mg (sust. release) tab PO SCH (08:22)
[2021-02-08] MEDS: methylPREDNISolone sod succ/PF 40mg inj. IV SCH (08:24)
[2021-02-08] MEDS: enoxaparin 80mg/0.8ml syringe SUBCUT SCH (08:24)
[2021-02-08] MEDS: VITAMIN CODE PO SCH (08:25)
[2021-02-08] MEDS: QUERCETIN WITH BROMELAIN PO SCH (08:26)
[2021-02-08] MEDS: NAC PO SCH (08:26)
[2021-02-08] MEDS: [UNRECOGNIZED DRUG - OTHER] PO SCH (08:26)
[2021-02-08] MEDS: SELENIUM PO SCH (08:26)
[2021-02-08] MEDS: LIDOcaine 5% patch TP SCH (08:52)
[2021-02-08] MEDS: ALBUTEROL INHALER 1 PUFF/90 MCG INHALER IH SCH ×3 (08:57→15:00)
[2021-02-08 09:23] LABS: BASOPHILS % (AUTO) 0.3 % (0-1); EOSINOPHILS # (AUTO) 0.1 X10'3 (0-0.9); EOSINOPHILS % (AUTO) 0.7 % (0-6); HEMATOCRIT 42.2 % (35.0-45.0); HEMOGLOBIN 14.3 g/dl (12.0-16.0); LYMPHOCYTES # (AUTO) 1.5 X10'3 (1.1-4.8); LYMPHOCYTES % (AUTO) 10.5 % (21-51); MEAN CORPUSCULAR HGB CONC 33.9 g/dL (33.0-36.5); MEAN CORPUSCULAR VOLUME 94.4 FL (78-98); MONOCYTES # (AUTO) 0.7 X10'3 (0-0.9); MONOCYTES % (AUTO) 4.6 % (2-12); NEUTROPHILS % (AUTO) 83.9 % (42-75); PLATELET COUNT 217 X10'3 (140-440); RED BLOOD COUNT 4.47 X10'6 (4.20-5.60); RED CELL DISTRIBUTION WIDTH 12.6 % (11.5-14.5); WHITE BLOOD COUNT 14.3 X10'3 (4.5-11.0)
[2021-02-08 09:27] LABS: D-DIMER 6.22 MG/L FEU (0-0.50)
[2021-02-08 10:01] LABS: ALANINE AMINOTRANSFERASE 85 U/L (12-78); ALBUMIN 2.5 G/DL (3.4-5.0); ALBUMIN/GLOBULIN RATIO 0.6 (1.1-1.5); ALKALINE PHOSPHATASE 120 IU/L (46-116); ANION GAP 14 (8-16); ASPARTATE AMINO TRANSFERASE 28 U/L (10-37); BILIRUBIN,TOTAL 0.3 MG/DL (0.1-1.0); BLOOD UREA NITROGEN 20 MG/DL (7-18); C-REACTIVE PROTEIN 0.32 MG/DL (0.0-0.5); CALCIUM 8.2 MG/DL (8.5-10.1); CHLORIDE 103 MMOL/L (99-107); CREATININE 0.87 MG/DL (0.40-0.90); SODIUM 139 MMOL/L (135-145); TOTAL CARBON DIOXIDE 22.3 MMOL/L (24-32); eGFR 75 ML/MIN
[2021-02-08 10:04] LABS: GLUCOSE 171 MG/DL (70-104); POTASSIUM 3.5 MMOL/L (3.5-5.1)
--- NOTE | 2021-02-08 10:07 | NUR ---
O2 Sat at rest on room air:_88__% If below 89%: Recovery O2 Sat at rest on _3_LPM:__92_%:___% via___NASAL CANULA__(mask/nasal cannula, etc..) No further documentation is necessary. If O2 Sat did not drop below 89% on room air,ambulate patient on room air. O2 Sat while ambulating on room air:___% Recovery O2 Sat while ambulating on ___LPM:___% No further documentation is necessary. If patient does not drop below 89% while ambulating, he/she does not qualify for home O2.
[2021-02-08] MEDS ORDERED: OXYC1TAB17 PO (12:01)
[2021-02-08] MEDS ORDERED: PRED10TA PO ×2 (12:01)
[2021-02-08] MEDS ORDERED: ALBU6.7H9 IH ×2 (12:01)
[2021-02-08] MEDS ORDERED: gabapentin capsule PO (12:01)
[2021-02-08] MEDS ORDERED: APIX5TAB3 PO ×2 (12:01)
[2021-02-08] MEDS ORDERED: OXYC10TA57 PO (12:01)
[2021-02-08 12:10] LABS: NEUTROPHILS % (MANUAL) 83 % (42-75); TOTAL CELLS COUNTED 100
[2021-02-08 12:13] LABS: PLATELET ESTIMATE NORMAL
--- NOTE | 2021-02-08 14:30 | NUR ---
DC INSTRUCTIONS GIVEN, QUESTIONS ANSWERED. IV AND TELE MONITOR REMOVED. PT DRESSED SELF, GATHERED BELONGINGS. INSTRUCTED ON O2 USE. WHEELED DOWN TO PRIVATE VEHICLE IN STABLE CONDITION.
== END 2021-02-08 14:00 | disposition home or self-care (01) | DRG 177 ==
LOC: ER 18:06 → ED HOLD 23:35 → ORTHO 4S 01-30 22:44
PROVIDERS: ADMIT Internal Medicine; ATTEND Internal Medicine
PROC: B32T1ZZ Computerized Tomography (CT Scan) of Left Pulmonary Artery using Low Osmolar Contrast (ICD-10-PCS; 2021-01-29)
PROC: B3201ZZ Computerized Tomography (CT Scan) of Thoracic Aorta using Low Osmolar Contrast (ICD-10-PCS; 2021-01-29)
PROC: B32S1ZZ Computerized Tomography (CT Scan) of Right Pulmonary Artery using Low Osmolar Contrast (ICD-10-PCS; 2021-01-29)
PROC: XW033E5 Introduction of Remdesivir Anti-infective into Peripheral Vein, Percutaneous Approach, New Technology Group 5 (ICD-10-PCS; principal; 2021-01-30)
PROC: XW0DXM6 Introduction of Baricitinib into Mouth and Pharynx, External Approach, New Technology Group 6 (ICD-10-PCS; 2021-01-31)
PROC: 5A0955A Assistance with Respiratory Ventilation, Greater than 96 Consecutive Hours, High Flow/Velocity Cannula (ICD-10-PCS; 2021-01-31)
DX: U07.1 COVID-19 (principal); J12.82 Pneumonia due to coronavirus disease 2019; J96.01 Acute respiratory failure with hypoxia; I82.431 Acute embolism and thrombosis of right popliteal vein; G62.9 Polyneuropathy, unspecified; E87.6 Hypokalemia; G57.12 Meralgia paresthetica, left lower limb; F41.9 Anxiety disorder, unspecified; G89.4 Chronic pain syndrome; I49.8 Other specified cardiac arrhythmias; F32.A Depression, unspecified; M25.552 Pain in left hip; M54.50 Low back pain, unspecified; Z79.899 Other long term (current) drug therapy; T50.995A Adverse effect of other drugs, medicaments and biological substances, initial encounter; Y92.230 Patient room in hospital as the place of occurrence of the external cause
CPT/HCPCS: 36415; 36600; 71045; 71275; 73502; 80053; 80305; 81003; 81025; 82803; 83605; 83615; 83735; 83880; 84100; 84145; 85007; 85018; 85025; 85379; 86140; 87040; 87081; 87635; 93005; 93306; 93970; 94640; 94668; 94760; 97110; 97116; 97161; 97530; 99285; C9803; G0378; J0696; J1100; J1170; J1650; J2405; J2920; J3480; J7030; J7060

== ENCOUNTER 2021-02-19 22:33 | Inpatient (IN) | payer OTHER ==
[~2021-02-19] VITALS: Ht 152.4 cm; Wt 77.8 kg
[~2021-02-19 22:33] MED LIST: ALBU6.7H9 IH; APIX5TAB3 PO; BUPR-344 PO; METH-797 PO; OXYC10TA57 PO; OXYC1TAB17 PO; PRED10TA PO; TRAM50TA2 PO; gabapentin capsule PO
[2021-02-19 23:48] LABS: BASOPHILS # (AUTO) 0.1 X10'3 (0-0.2); BASOPHILS % (AUTO) 0.8 % (0-1); EOSINOPHILS # (AUTO) 0.3 X10'3 (0-0.9); HEMATOCRIT 44.8 % (35.0-45.0); LYMPHOCYTES # (AUTO) 2.1 X10'3 (1.1-4.8); LYMPHOCYTES % (AUTO) 14.2 % (21-51); MEAN CORPUSCULAR HEMOGLOBIN 32.1 PG (27.0-31.0); MEAN CORPUSCULAR HGB CONC 33.6 g/dL (33.0-36.5); MEAN CORPUSCULAR VOLUME 95.6 FL (78-98); MEAN PLATELET VOLUME 8.1 FL (7.4-10.4); MONOCYTES # (AUTO) 0.8 X10'3 (0-0.9); MONOCYTES % (AUTO) 5.1 % (2-12); NEUTROPHILS # (AUTO) 11.6 X10'3 (1.8-7.7); NEUTROPHILS % (AUTO) 77.9 % (42-75); PLATELET COUNT 241 X10'3 (140-440); RED BLOOD COUNT 4.69 X10'6 (4.20-5.60); WHITE BLOOD COUNT 14.9 X10'3 (4.5-11.0)
[2021-02-19 23:54] LABS: D-DIMER 3.96 MG/L FEU (0-0.50)
[2021-02-19 23:59] LABS: ALANINE AMINOTRANSFERASE 50 U/L (12-78); ALBUMIN 3.2 G/DL (3.4-5.0); ALBUMIN/GLOBULIN RATIO 0.7 (1.1-1.5); ALKALINE PHOSPHATASE 79 IU/L (46-116); BILIRUBIN,TOTAL 0.4 MG/DL (0.1-1.0); BLOOD UREA NITROGEN 23 MG/DL (7-18); BUN/CREATININE RATIO 26.7 (6.6-38.0); CALCIUM 9.2 MG/DL (8.5-10.1); CHLORIDE 99 MMOL/L (99-107); CREATININE 0.86 MG/DL (0.40-0.90); GLUCOSE 111 MG/DL (70-104); TOTAL CARBON DIOXIDE 29.6 MMOL/L (24-32); TOTAL PROTEIN 7.5 G/DL (6.4-8.2); eGFR 76 ML/MIN
[2021-02-20 00:09] LABS: ANION GAP -2 (8-16); POTASSIUM 3.8 MMOL/L (3.5-5.1); SODIUM 127 MMOL/L (135-145)
[2021-02-20 00:15] LABS: ASPARTATE AMINO TRANSFERASE 22 U/L (10-37)
[2021-02-20] MEDS ORDERED: iohexol 350MG/ML 100ml bottle IV ONE (00:41)
[2021-02-20] MEDS ORDERED: enoxaparin 80mg/0.8ml syringe SUBCUT ONE (02:05)
[2021-02-20] MEDS ORDERED: potassium Cl 20 mEq SR tablet PO PRN ×2 (02:50)
[2021-02-20] MEDS ORDERED: heparin 10,000 units/1 ML INJ IV PRN (02:50)
[2021-02-20] MEDS ORDERED: morphine 2 MG/ML inj. syringe IV PRN ×2 (02:50)
[2021-02-20] MEDS ORDERED: mag hydrox/Alum hydrox/simeth 30ml oral suspension PO PRN (02:50)
[2021-02-20] MEDS ORDERED: heparin 10,000 units/1 ML INJ IV ONE (02:50)
[2021-02-20] MEDS ORDERED: potassium Cl 40MEQ/1/2NS 520ml 520 ML IV PRN ×2 (02:50)
[2021-02-20] MEDS ORDERED: magnesium 2GM in 50ml NS 50 ML IV PRN (02:50)
[2021-02-20] MEDS ORDERED: magnesium 4gm in 100ml NS 100 ML IV PRN (02:50)
[2021-02-20] MEDS ORDERED: ondansetron/PF 4mg/2ml inj IV PRN (02:50)
[2021-02-20] MEDS ORDERED: HYDROcodone/acetaminophen 5mg/325mg tablet PO PRN (02:50)
[2021-02-20] MEDS ORDERED: acetaminophen 325mg tablet PO PRN (02:50)
[2021-02-20] MEDS ORDERED: magnesium Cl slow-release 64mg tablet PO PRN (02:50)
[2021-02-20] MEDS ORDERED: HYDROcodone/acetaminophen 10/325mg tab PO PRN (02:50)
[2021-02-20 02:59] LABS: CLARITY,URINE CLEAR (Clear); COLOR,URINE YELLOW (Yellow); GLUCOSE, URINE NEGATIVE (Neg); PROTEIN,URINE NEGATIVE (Neg); UA COLLECTION TYPE CLN CATCH MIDSTREAM
[2021-02-20 03:00] LABS: KETONES,URINE NEGATIVE (Neg); LEUKOCYTE ESTERASE ,URINE NEGATIVE (Neg); NITRITES, URINE NEGATIVE (Neg); OCCULT BLOOD,URINE TRACE-LYSED (Neg); RBC,URINE 0-2 /HPF (0-2); UROBILINOGEN,URINE 0.2 E.U/dL (0.2-1.0); WBC,URINE NONE SEEN /HPF (0-4)
[2021-02-20 03:01] LABS: BACTERIA,URINE NONE SEEN /HPF (Neg); SQUAMOUS EPITHELIAL CELL,UR FEW /LPF (FEW)
[2021-02-20] MEDS: heparin 25,000 UNIT/250ml bag 250 ML IV SCH ×2 (05:04→21:25)
[2021-02-20] MEDS: normal saline 1000ml 1,000 ML IV SCH (05:37)
[2021-02-20] MEDS ORDERED: LEVO500T90 PO (06:12)
[2021-02-20] MEDS ORDERED: dexamethasone 6 MG in D5W 100ml IV soln IV SCH (08:00)
[2021-02-20] MEDS ORDERED: dexamethasone 4mg/ml inj IV SCH (08:00)
[2021-02-20] MEDS ORDERED: REMDESIVIR INJ 100 MG in normal saline 100ml IV soln 100 ML IV SCH (08:00)
[2021-02-20] MEDS: K and/or MAG REPLACEMENT MC SCH ×2 (08:00→20:00)
[2021-02-20] MEDS ORDERED: GABA300C PO (10:39)
[2021-02-20] MEDS ORDERED: OXYC-134 PO (10:39)
[2021-02-20] MEDS ORDERED: OXYC10TA92 PO (10:39)
[2021-02-20] MEDS ORDERED: ALBU18HF2 PO (10:39)
[2021-02-20] MEDS ORDERED: BUPR-317 PO ×2 (10:39)
[2021-02-20] MEDS ORDERED: APIX5TAB3 PO (10:39)
[2021-02-20 11:13] LABS: TOTAL CELLS COUNTED 100
[2021-02-20 11:14] LABS: PLATELET ESTIMATE NORMAL
[2021-02-20] MEDS: gabapentin 300mg capsule PO SCH (20:20)
[2021-02-20] MEDS: cyclobenzaprine 10mg tablet PO SCH (20:20)
[2021-02-20] MEDS: oxyCODONE SR 10mg (sust. release) tab PO SCH (20:20)
[2021-02-20] MEDS ORDERED: dexamethasone inj 6 MG in dextrose 5%-water 100 ML IV ONE ×2 (20:53→21:10)
--- NOTE | 2021-02-21 | NUR ---
Patient in room PCU 3019. I have received report from Kimberly VARMA and had the opportunity to ask questions and assume patient care.
--- NOTE | 2021-02-21 01:37 | NUR ---
Pt requested for a sleep medication. Dr Miller was informed and he prescribed melatonin 6 mg PRN.
--- NOTE | 2021-02-21 01:37 | NUR ---
PAGE sent to Dr. Miller PAGER ID: [phone] MESSAGE: [phone] LpueAmi ferrell [phone] Patient is requesting for a sleep medication. I don't see any prn on her emar. please be advised. Thank you
[2021-02-21] MEDS ORDERED: Melatonin 3mg tablet PO PRN (01:40)
[2021-02-21 02:00] VITALS: BP 102/64
[2021-02-21] MEDS: heparin 25,000 UNIT/250ml bag 250 ML IV SCH (02:08)
[2021-02-21 06:00] VITALS: BP 95/50
[2021-02-21 06:06] LABS: BASOPHILS # (AUTO) 0.1 X10'3 (0-0.2); BASOPHILS % (AUTO) 0.5 % (0-1); EOSINOPHILS # (AUTO) 0.1 X10'3 (0-0.9); EOSINOPHILS % (AUTO) 0.7 % (0-6); HEMATOCRIT 42.5 % (35.0-45.0); HEMOGLOBIN 14.3 g/dl (12.0-16.0); LYMPHOCYTES # (AUTO) 1.8 X10'3 (1.1-4.8); LYMPHOCYTES % (AUTO) 13.4 % (21-51); MEAN CORPUSCULAR HEMOGLOBIN 32.3 PG (27.0-31.0); MEAN CORPUSCULAR HGB CONC 33.8 g/dL (33.0-36.5); MEAN CORPUSCULAR VOLUME 95.5 FL (78-98); MEAN PLATELET VOLUME 8.2 FL (7.4-10.4); MONOCYTES # (AUTO) 0.7 X10'3 (0-0.9); MONOCYTES % (AUTO) 5.2 % (2-12); NEUTROPHILS # (AUTO) 10.5 X10'3 (1.8-7.7); NEUTROPHILS % (AUTO) 80.2 % (42-75); PLATELET COUNT 193 X10'3 (140-440); RED BLOOD COUNT 4.45 X10'6 (4.20-5.60); RED CELL DISTRIBUTION WIDTH 14.2 % (11.5-14.5); WHITE BLOOD COUNT 13.1 X10'3 (4.5-11.0)
[2021-02-21 06:23] LABS: ALANINE AMINOTRANSFERASE 37 U/L (12-78); ALBUMIN/GLOBULIN RATIO 0.8 (1.1-1.5); ALKALINE PHOSPHATASE 70 IU/L (46-116); ANION GAP 12 (8-16); ASPARTATE AMINO TRANSFERASE 13 U/L (10-37); BILIRUBIN,TOTAL 0.4 MG/DL (0.1-1.0); BLOOD UREA NITROGEN 15 MG/DL (7-18); BUN/CREATININE RATIO 16.3 (6.6-38.0); CALCIUM 8.4 MG/DL (8.5-10.1); CHLORIDE 105 MMOL/L (99-107); CREATININE 0.92 MG/DL (0.40-0.90); GLUCOSE 136 MG/DL (70-104); MAGNESIUM 2.3 MG/DL (1.5-2.4); POTASSIUM 4.3 MMOL/L (3.5-5.1); SODIUM 142 MMOL/L (135-145); TOTAL CARBON DIOXIDE 25.4 MMOL/L (24-32); TOTAL PROTEIN 6.7 G/DL (6.4-8.2); eGFR 70 ML/MIN
--- NOTE | 2021-02-21 06:35 | NUR ---
Patient in room PCU 3019. I have received report from KOJO Dominguez and had the opportunity to ask questions and assume patient care.
[2021-02-21] MEDS: K and/or MAG REPLACEMENT MC SCH ×2 (08:00→20:00)
[2021-02-21] MEDS ORDERED: BUPROPION PO SCH (08:00)
[2021-02-21 08:42] LABS: PLATELET ESTIMATE NORMAL; TOTAL CELLS COUNTED 100
[2021-02-21] MEDS: gabapentin 300mg capsule PO SCH ×2 (08:52→20:27)
[2021-02-21] MEDS: cyclobenzaprine 10mg tablet PO SCH ×3 (08:52→21:21)
[2021-02-21] MEDS: oxyCODONE SR 10mg (sust. release) tab PO SCH ×2 (08:52→20:27)
[2021-02-21] MEDS ORDERED: warfarin 5mg tablet PO ONE ×2 (09:00→21:00)
[2021-02-21] MEDS: enoxaparin 80mg/0.8ml syringe SUBCUT SCH ×2 (10:36→20:27)
[2021-02-21 11:00] VITALS: BP 104/64
[2021-02-21] MEDS: buPROPion SR 150mg tablet PO SCH ×2 (14:40→20:27)
[2021-02-21 15:00] VITALS: BP 197/92
--- NOTE | 2021-02-21 16:00 | NUR ---
The patient disconnected her IV fluids and tied them to her IV pole. She is now refusing IV fluids and would prefer PO fluids. A page has been sent to Dr. Tobin requesting to discontinue the order for normal saline at 100 mL/hr and to order saline lock.
--- NOTE | 2021-02-21 16:25 | NUR ---
PAGER ID: [phone] MESSAGE: Ami Andrade# 19 Pt disconnected herself from IV fluids 2x, tubbing had to be changed along with Saline bags 2x. She finally asked if she can be saline lock because she is drinking enough fluids. Thank you Dorothy Minaya [facility] [id number]
--- NOTE | 2021-02-21 16:28 | NUR ---
Coumadin 5mg dose schedule at 0900, was changed by Dr Tobin to 2100 1st dose. see orders.
[2021-02-21 18:00] VITALS: BP 110/65
--- NOTE | 2021-02-21 18:27 | NUR ---
Problems reprioritized. Patient report given, questions answered & plan of care reviewed with KOJO Jose.
[2021-02-21 22:00] VITALS: BP 91/51
[2021-02-22 02:00] VITALS: BP 103/55
[2021-02-22] MEDS: normal saline 1000ml 1,000 ML IV SCH (02:50)
[2021-02-22 06:00] VITALS: BP 95/54
[2021-02-22 06:17] LABS: BASOPHILS # (AUTO) 0.1 X10'3 (0-0.2); BASOPHILS % (AUTO) 0.5 % (0-1); EOSINOPHILS # (AUTO) 0.4 X10'3 (0-0.9); EOSINOPHILS % (AUTO) 3.3 % (0-6); HEMATOCRIT 38.2 % (35.0-45.0); LYMPHOCYTES # (AUTO) 4.5 X10'3 (1.1-4.8); LYMPHOCYTES % (AUTO) 38.9 % (21-51); MEAN CORPUSCULAR HEMOGLOBIN 32.7 PG (27.0-31.0); MEAN CORPUSCULAR HGB CONC 33.9 g/dL (33.0-36.5); MEAN CORPUSCULAR VOLUME 96.4 FL (78-98); MEAN PLATELET VOLUME 8.3 FL (7.4-10.4); MONOCYTES # (AUTO) 0.9 X10'3 (0-0.9); MONOCYTES % (AUTO) 7.4 % (2-12); NEUTROPHILS # (AUTO) 5.8 X10'3 (1.8-7.7); NEUTROPHILS % (AUTO) 49.9 % (42-75); PLATELET COUNT 170 X10'3 (140-440); RED BLOOD COUNT 3.97 X10'6 (4.20-5.60); WHITE BLOOD COUNT 11.5 X10'3 (4.5-11.0)
[2021-02-22 06:18] LABS: ALANINE AMINOTRANSFERASE 35 U/L (12-78); ALBUMIN 2.6 G/DL (3.4-5.0); ALBUMIN/GLOBULIN RATIO 0.8 (1.1-1.5); ALKALINE PHOSPHATASE 64 IU/L (46-116); ANION GAP 7 (8-16); ASPARTATE AMINO TRANSFERASE 11 U/L (10-37); BILIRUBIN,TOTAL 0.2 MG/DL (0.1-1.0); BLOOD UREA NITROGEN 15 MG/DL (7-18); CALCIUM 8.1 MG/DL (8.5-10.1); CHLORIDE 108 MMOL/L (99-107); CREATININE 0.88 MG/DL (0.40-0.90); GLUCOSE 89 MG/DL (70-104); MAGNESIUM 2.2 MG/DL (1.5-2.4); POTASSIUM 3.8 MMOL/L (3.5-5.1); SODIUM 142 MMOL/L (135-145); TOTAL CARBON DIOXIDE 26.6 MMOL/L (24-32); eGFR 74 ML/MIN
--- NOTE | 2021-02-22 06:30 | NUR ---
Patient in room PCU 3019. I have received report from KOJO Jose and had the opportunity to ask questions and assume patient care.
--- NOTE | 2021-02-22 06:34 | NUR ---
Problems reprioritized. Patient report given, questions answered & plan of care reviewed with Christina Mcgill. Addendum: 02/22/21 at 0634 by Rebeca Yip RN Amended: Links added.
[2021-02-22 07:36] LABS: PLATELET ESTIMATE NORMAL; TOTAL CELLS COUNTED 100
[2021-02-22] MEDS: K and/or MAG REPLACEMENT MC SCH (08:00)
[2021-02-22] MEDS: oxyCODONE SR 10mg (sust. release) tab PO SCH (09:38)
[2021-02-22] MEDS: enoxaparin 80mg/0.8ml syringe SUBCUT SCH (09:38)
[2021-02-22] MEDS: cyclobenzaprine 10mg tablet PO SCH (09:38)
[2021-02-22] MEDS: buPROPion SR 150mg tablet PO SCH (09:38)
[2021-02-22] MEDS: gabapentin 300mg capsule PO SCH (09:38)
[2021-02-22 11:00] VITALS: BP 109/58
[2021-02-22] MEDS ORDERED: ENOX80DI13 SUBCUT (12:05)
[2021-02-22] MEDS ORDERED: WARF-55 PO (12:05)
--- NOTE | 2021-02-22 13:40 | NUR ---
Pt discharged to home with all belongings, in private vehicle, accompanied by . Discharge instructions and medications reviewed. Pt instructed to follow up with PCP YURIY and to draw INR on 02/24, order provided to pt. Pt also instructed to stop taking prescription for eliquis and to continue taking coumadin and heparin as prescribed. Pt instructed to return to ED if symptoms return. Pt stated understanding and willingness to comply with all discharge instructions. IV DC'd, cannula intact. Pt escorted to front lobby via wheelchair.
== END 2021-02-22 13:40 | disposition home or self-care (01) | DRG 299 ==
LOC: ER 22:34 → ED HOLD 02-20 02:49 → UNDOADMIN 02-20 02:57 → ED HOLD 02-20 02:57 → PCU 3S 02-20 23:47 → ED HOLD 02-20 23:47
PROVIDERS: ADMIT Internal Medicine; ATTEND Family Medicine
PROC: B32T1ZZ Computerized Tomography (CT Scan) of Left Pulmonary Artery using Low Osmolar Contrast (ICD-10-PCS; principal; 2021-02-20)
PROC: B3201ZZ Computerized Tomography (CT Scan) of Thoracic Aorta using Low Osmolar Contrast (ICD-10-PCS; 2021-02-20)
PROC: B32S1ZZ Computerized Tomography (CT Scan) of Right Pulmonary Artery using Low Osmolar Contrast (ICD-10-PCS; 2021-02-20)
DX: I82.403 Acute embolism and thrombosis of unspecified deep veins of lower extremity, bilateral (principal); I26.99 Other pulmonary embolism without acute cor pulmonale; E87.1 Hypo-osmolality and hyponatremia; E66.9 Obesity, unspecified; F41.9 Anxiety disorder, unspecified; G62.9 Polyneuropathy, unspecified; G89.4 Chronic pain syndrome; Z86.718 Personal history of other venous thrombosis and embolism; Z68.33 Body mass index [BMI] 33.0-33.9, adult; Z79.899 Other long term (current) drug therapy; Z86.16 Personal history of COVID-19
CPT/HCPCS: 36415; 71045; 71275; 80053; 81001; 82948; 83605; 83735; 84145; 84484; 85007; 85025; 85379; 85610; 85730; 87040; 87081; 93005; 93308; 93971; 97161; 97530; 99285; G0378; J1100; J1644; J1650; J7030; J7060; Q9967

== ENCOUNTER 2024-04-05 02:21 | Inpatient (IN) | payer BC, OTHER ==
[~2024-04-05] VITALS: Ht 152.4 cm; Wt 67.6 kg
[2024-04-05] VITALS (11 sets, daily range): BP systolic 97–126; BP diastolic 58–77; PULSE 59–82; RESP 13–18; TEMP 98.8; O2SAT 98–100
[~2024-04-05 02:21] MED LIST changes: +ALBU18HF2 PO; -ALBU6.7H9 IH; -APIX5TAB3 PO; -BUPR-344 PO; +BUPR-561 PO; +ENOX80SY24 SUBCUT; +GABA300C PO; +OXYC-134 PO; +OXYC-752 PO; -OXYC10TA57 PO; -OXYC1TAB17 PO; -PRED10TA PO; +WARF-55 PO; -gabapentin capsule PO
[2024-04-05 03:11] LABS: BASOPHILS % (AUTO) 0.4 % (0-1); EOSINOPHILS # (AUTO) 0.3 X10'3 (0-0.9); EOSINOPHILS % (AUTO) 2.6 % (0-6); HEMATOCRIT 45.3 % (35.0-45.0); HEMOGLOBIN 15.5 g/dl (12.0-16.0); LYMPHOCYTES % (AUTO) 15.5 % (21-51); MEAN CORPUSCULAR HEMOGLOBIN 32.1 PG (27.0-31.0); MEAN CORPUSCULAR HGB CONC 34.1 g/dL (33.0-36.5); MEAN CORPUSCULAR VOLUME 94.2 FL (78-98); MONOCYTES # (AUTO) 0.9 X10'3 (0-0.9); MONOCYTES % (AUTO) 7.2 % (2-12); NEUTROPHILS # (AUTO) 9.8 X10'3 (1.8-7.7); NEUTROPHILS % (AUTO) 74.3 % (42-75); PLATELET COUNT 234 X10'3 (140-440); RED BLOOD COUNT 4.81 X10'6 (4.20-5.60); RED CELL DISTRIBUTION WIDTH 12.2 % (11.5-14.5); WHITE BLOOD COUNT 13.2 X10'3 (4.5-11.0)
[2024-04-05 03:29] LABS: ALANINE AMINOTRANSFERASE 16 U/L (12-78); ALBUMIN/GLOBULIN RATIO 1.2 (1.1-1.5); ALKALINE PHOSPHATASE 57 IU/L (46-116); ANION GAP 10 (8-16); ASPARTATE AMINO TRANSFERASE 16 U/L (10-37); BILIRUBIN,TOTAL 0.6 MG/DL (0.1-1.0); BLOOD UREA NITROGEN 12 MG/DL (7-18); BUN/CREATININE RATIO 19.7 (10.0-20.0); CALCIUM 8.7 MG/DL (8.5-10.1); CHLORIDE 105 MMOL/L (99-107); CREATININE 0.61 MG/DL (0.40-0.90); GLUCOSE 107 MG/DL (70-104); LIPASE 37 U/L (16-77); POTASSIUM 3.6 MMOL/L (3.5-5.1); SODIUM 139 MMOL/L (135-145); TOTAL CARBON DIOXIDE 23.9 MMOL/L (24-32); TOTAL PROTEIN 7.4 G/DL (6.4-8.2); eCRCL 91 ML/MIN; eGFR > 90 ML/MIN
[2024-04-05 03:44] LABS: BILIRUBIN,URINE NEGATIVE (Neg); CLARITY,URINE CLEAR (Clear); COLOR,URINE YELLOW (Yellow); GLUCOSE, URINE NEGATIVE (Neg); KETONES,URINE NEGATIVE (Neg); LEUKOCYTE ESTERASE ,URINE NEGATIVE (Neg); NITRITES, URINE NEGATIVE (Neg); OCCULT BLOOD,URINE NEGATIVE (Neg); PH,URINE 5.5 (4.8-8.0); PROTEIN,URINE NEGATIVE (Neg); UROBILINOGEN,URINE 0.2 E.U/dL (0.2-1.0)
[2024-04-05 03:46] LABS: URINE HCG NEGATIVE (NEG)
[2024-04-05 03:49] LABS: UA COLLECTION TYPE NON-SPECIFIED
[2024-04-05] MEDS: HYDROmorphone 1 mg/ml syringe IV ONE ×2 (04:54→11:19)
[2024-04-05] MEDS: ketorolac trometh 30MG/ML vial 30 MG/ML VIAL IV ONE (04:58)
[2024-04-05] MEDS: normal saline 1000ml 1,000 ML IV ONE ×3 (04:58→10:48)
[2024-04-05] MEDS: metoclopramide 5 mg/ml inj IV ONE (05:07)
[2024-04-05] MEDS: piperacillin/tazo 4.5gm/100ml 100 ML IV ONE (05:14)
[2024-04-05] MEDS ORDERED: morphine 2 MG/ML inj. syringe IV PRN ×2 (10:00→10:55)
[2024-04-05] MEDS ORDERED: ceFAZolin 2gm in dextrose, iso 100 ML IV ONE (10:00)
[2024-04-05] MEDS: ceFAZolin 2gm in dextrose, iso 50 ML IV ONE (10:47)
[2024-04-05] MEDS: INDOCYANINE GREEN 25 MG/10 ML VIAL IV STA (10:48)
[2024-04-05] MEDS: ringers solution, lacted 1,000 ML IV SCH (10:50)
[2024-04-05] MEDS ORDERED: morphine 4 MG/ML inj SYRINge IV PRN (10:55)
[2024-04-05] MEDS ORDERED: ringers solution, lacted 1,000 ML IV ONE (10:55)
[2024-04-05] MEDS ORDERED: hydrALAZINE 20mg/ml inj. IV PRN (10:55)
[2024-04-05] MEDS ORDERED: labetalol 20mg/4ml (5mg/ml) syringe IV PRN (10:55)
[2024-04-05] MEDS ORDERED: HYDROmorphone/PF 0.2 MG/ML SYRINGE IV PRN ×2 (10:55)
[2024-04-05] MEDS ORDERED: ringers solution, lacted 1,000 ML IV SCH (10:55)
[2024-04-05] MEDS ORDERED: LIDOcaine 1% (10mg/ml)w/preservative inj. 20ml MDV ONE (11:38)
[2024-04-05] MEDS ORDERED: BUPIVAcaine 2.5mg/ml inj 50ml vial (contains preservative) ONE (11:38)
[2024-04-05] MEDS ORDERED: fentaNYL/PF 50MCG/1 ML 2ML syringe ONE ×2 (11:48→13:01)
[2024-04-05] MEDS ORDERED: midazolam 1 mg/ML 2ml injection ONE (11:48)
[2024-04-05] MEDS ORDERED: propofol inj 20 ML IV ONE (11:50)
[2024-04-05] MEDS ORDERED: LIDOcaine 2% (20mg/ml) 5ml vial ONE (11:50)
[2024-04-05] MEDS ORDERED: rocuronium 10mg/ml inj IV ONE (11:51)
[2024-04-05] MEDS ORDERED: sevoflurane 250ml liquid IH ONE (12:05)
[2024-04-05] MEDS ORDERED: acetaminophen 1,000mg/100ml IV 100 ML IV ONE (12:24)
[2024-04-05] MEDS ORDERED: glycopyrrolate 0.2mg/ml inj ONE (12:44)
[2024-04-05] MEDS ORDERED: neostigmine methylsulfate 1 MG/ML 10ml vial ONE (12:44)
[2024-04-05] MEDS ORDERED: naloxone 0.4 mg/ml inj IV PRN (13:40)
[2024-04-05] MEDS ORDERED: oxyCODONE/APAP 5-325mg tablet PO PRN (13:40)
[2024-04-05] MEDS ORDERED: ondansetron/PF 4mg/2ml inj IV PRN (13:40)
[2024-04-05] MEDS: ondansetron/PF 4mg/2ml inj IV PRN (15:10)
== END 2024-04-05 14:58 | disposition home or self-care (01) | DRG 419 ==
LOC: ER 02:22 → ED HOLD 10:05
PROVIDERS: ADMIT Surgery; ATTEND Surgery
PROC: BF522Z0 Other Imaging of Gallbladder using Fluorescing Agent, Intraoperative (ICD-10-PCS; 2024-04-05)
PROC: 8E0W3CZ Robotic Assisted Procedure of Trunk Region, Percutaneous Approach (ICD-10-PCS; 2024-04-05)
PROC: 0FT44ZZ Resection of Gallbladder, Percutaneous Endoscopic Approach (ICD-10-PCS; principal; 2024-04-05 12:05)
DX: K80.00 Calculus of gallbladder with acute cholecystitis without obstruction (principal); E86.0 Dehydration; G89.29 Other chronic pain; G62.9 Polyneuropathy, unspecified; Z86.711 Personal history of pulmonary embolism; Z86.718 Personal history of other venous thrombosis and embolism
CPT/HCPCS: 99285; Z7506; Z7508; 36415; 76700; 80053; 81003; 81025; 83605; 83690; 85025; 87040; A4215; A4618; A7000; G0378; J0131; J0690; J1100; J1171; J1885; J2003; J2250; J2405; J2543; J2704; J2710; J2765; J3010; J3490; J7030; J7120

== ENCOUNTER 2024-04-15 07:28 | Emergency (ER) | payer OTHER ==
[~2024-04-15] VITALS: Ht 152.4 cm; Wt 65.9 kg
[2024-04-15 07:32] VITALS: TEMP 97.9
[2024-04-15 08:32] LABS: BASOPHILS % (AUTO) 0.6 % (0-1); EOSINOPHILS # (AUTO) 0.6 X10'3 (0-0.9); EOSINOPHILS % (AUTO) 6.5 % (0-6); HEMATOCRIT 41.7 % (35.0-45.0); HEMOGLOBIN 14.4 g/dl (12.0-16.0); LYMPHOCYTES # (AUTO) 1.4 X10'3 (1.1-4.8); LYMPHOCYTES % (AUTO) 15.7 % (21-51); MEAN CORPUSCULAR HEMOGLOBIN 32.3 PG (27.0-31.0); MEAN CORPUSCULAR HGB CONC 34.5 g/dL (33.0-36.5); MEAN CORPUSCULAR VOLUME 93.7 FL (78-98); MEAN PLATELET VOLUME 9.5 FL (7.4-10.4); MONOCYTES # (AUTO) 0.6 X10'3 (0-0.9); MONOCYTES % (AUTO) 7.2 % (2-12); NEUTROPHILS # (AUTO) 6.1 X10'3 (1.8-7.7); PLATELET COUNT 200 X10'3 (140-440); RED BLOOD COUNT 4.45 X10'6 (4.20-5.60); RED CELL DISTRIBUTION WIDTH 12.3 % (11.5-14.5); WHITE BLOOD COUNT 8.8 X10'3 (4.5-11.0)
[2024-04-15 08:40] LABS: ALANINE AMINOTRANSFERASE 41 U/L (12-78); ALBUMIN 3.3 G/DL (3.4-5.0); ALBUMIN/GLOBULIN RATIO 0.9 (1.1-1.5); ALKALINE PHOSPHATASE 70 IU/L (46-116); ANION GAP 7 (8-16); ASPARTATE AMINO TRANSFERASE 26 U/L (10-37); BILIRUBIN,TOTAL 0.7 MG/DL (0.1-1.0); BLOOD UREA NITROGEN 12 MG/DL (7-18); BUN/CREATININE RATIO 18.5 (10.0-20.0); CALCIUM 8.5 MG/DL (8.5-10.1); CHLORIDE 106 MMOL/L (99-107); CREATININE 0.65 MG/DL (0.40-0.90); GLUCOSE 98 MG/DL (70-104); LIPASE 55 U/L (16-77); POTASSIUM 3.8 MMOL/L (3.5-5.1); SODIUM 142 MMOL/L (135-145); TOTAL CARBON DIOXIDE 29.5 MMOL/L (24-32); TOTAL PROTEIN 6.8 G/DL (6.4-8.2); eCRCL 85 ML/MIN; eGFR > 90 ML/MIN
[2024-04-15 10:01] VITALS: BP 107/71; PULSE 67; RESP 18; O2SAT 98
== END 2024-04-15 10:06 | disposition home or self-care (01) ==
LOC: ER 07:29
DX: R10.84 Generalized abdominal pain (principal); Z79.899 Other long term (current) drug therapy; Z86.718 Personal history of other venous thrombosis and embolism; Z90.49 Acquired absence of other specified parts of digestive tract
CPT/HCPCS: 36415; 76700; 80053; 83690; 85025; 99284

== ENCOUNTER 2024-11-09 19:02 | Emergency (ER) | payer OTHER ==
[~2024-11-09] VITALS: Ht 152.4 cm; Wt 66.8 kg
[~2024-11-09 19:02] MED LIST changes: -BUPR-561 PO; +BUPR-726 PO
--- NOTE | 2024-11-09 21:02 | RADIOLOGY REPORT ---
CLINICAL HISTORY: head trauma, neck trauma TECHNIQUE: Helical imaging carried out from skull base to vertex without intravenous contrast. This e xam was performed according to our departmental dose optimization program. Up-to-date CT equipment an d radiation dose reduction techniques are utilized as appropriate. CTDIVol: 72.91 mGy DLP: 1265.32 mGy-cm WID: COMPARISON: None FINDINGS: The ventricles and subarachnoid spaces are normal in size and configuration. There is no midline geno ft or mass effect. The andre white matter interfaces are maintained. The basal cisterns are patent. Th ere is no evidence of acute intracranial hemorrhage or extra-axial fluid collection. The mastoid air cells and visualized paranasal sinuses are well-aerated. IMPRESSION: No acute intracranial abnormality.
--- NOTE | 2024-11-09 21:06 | RADIOLOGY REPORT ---
CLINICAL HISTORY: head trauma, neck trauma TECHNIQUE: CT exam of the cervical spine was performed without intravenous contrast. This exam was pe rformed according to our departmental dose optimization program. Up-to-date CT equipment and radiatio n dose reduction techniques are utilized as appropriate. CTDI: 21.09 DLP: 498.19 WID: COMPARISON: None FINDINGS: There is normal cervical alignment. The vertebral body heights are maintained. No acute cervical frac ture or subluxation is identified. No significant central or neural foraminal narrowing is identified . Mild disc osteophyte complex at C5-C6. The paraspinous soft tissues are unremarkable. The lung apic es are clear. There appears to have been resection of most of the right 1st rib IMPRESSION: No acute cervical spine fracture or traumatic malalignment.
--- NOTE | 2024-11-09 21:17 | Physician Documentation ---
History of Present Illness ~ Chief Complaint: Head Injury Stated Complaint: FALL/NUMBNESS Time Seen by MD: 21:12 OK to notify your PCP?: Yes HPI Patient presents to the emergency room for evaluation of right upper extremity numbness. She has a history of cervical spine pathology. She stood up and hit the back of her head today before symptoms began. No bladder or bowel inco ntinence reported. Tetanus within 5 years?: No Medication Reconciliation Allergies: Coded Allergies: No Known Allergies (Unverified , 04/05/24) Scheduled Bupropion HCl (Bupropion Xl), 3 TAB PO DAILY, (Reported) Enoxaparin Sodium (Enoxaparin Sodium), 80 MG SUBCUT BID Gabapentin (Neurontin), 1 CAP PO BID, (Reported) Methocarbamol (Methocarbamol), 1 TAB PO Q12H, (Reported) Oxycodone HCl (Oxycodone HCl ER), 1 TAB PO BID, (Reported) Tramadol HCl (Tramadol HCl), 1 TABLET PO Q6H, (Reported) Warfarin Sodium (Warfarin Sodium), 1 TAB PO DAILY Scheduled PRN Albuterol Sulfate (Ventolin Hfa), 2 PUFF PO Q4H PRN for SOB or wheezing, (Reported) Oxycodone HCl/Acetaminophen (Endocet 5-325 Tablet), 1 TAB PO QID PRN PRN for pain, (Reported) Past Medical History Past Medical History: Peripheral Neuropathy, Chronic Pain, Deep Vein Thrombosis Past Surgical History: noncontributory Patient History: Patient reports no known family medical history. Drug Use: none Lives In: Home Review of Systems ROS All review of systems negative except as per HPI Physical Exam Vital Signs: Temperature: 98.0, Heart Rate: 98, Respiratory Rate: 16, BP: 114/65, Pulse Oximetry: 98, Weight: 66.820 Oxygen Flow Rate: 0 Physical Exam General: Patient is awake, alert, oriented x4 in no acute distress Head: Normocephalic and atraumatic. Eyes: Conjunctival normal. EOMI. PERRL. ENT: Mucous membranes moist. Neck: Supple, trachea is midline. No cervical midline tenderness. Sp ontaneously moving head from [id number] Chest: Clear to auscultation bilaterally without rales, rhonchi, or wheezes. There is no accessory muscle use or retractions. Cardiac: RRR without murmurs, gallops, or rubs. Neuro: Cranial nerves II-XII grossly intact. No focal neuro deficits. Patient ambulating without difficulty. Progress Results/Orders Results/Orders Orders - JOSEP PAL MD Ct Head (11/09/24 20:15) Ct Cervical Spine (11/09/24 20:15) Ketorolac Trometh 15mg/Ml Vial (Toradol (11/09/24 21:25) Completed Orders - JOSEP PAL MD Ct Head (11/09/24 20:15) Ct Cervical Spine (11/09/24 20:15) Vital Signs 11/09/24 19:12 Temp 98.0 Pulse 98 Resp 16 B/P (MAP) 114/65 Pulse Ox 98 O2 Flow Rate 0 Medical Decision Making Findings Patient presents to the emergency room with right upper extremity numbness as per HPI. Differentials include but are not limited to spinal cord injury, radiculopathy, cauda equina, fractures therefore emergent imaging performed which was reassuring. Reflexes reassuring and patient is ambulating well. He had not feel she requires an MRI. He had not suspect cauda equina. ER precautions discussed Departure Disposition: HOME / SELF CARE / HOMELESS Impression: Primary Impression: Radiculopathy Condition: Stable Discharge Instructions: Cervical Radiculopathy Referrals: NO PRIMARY CARE PROVIDER (PCP) Signature Scribe Signature: No scribe Attestation: The note accurately reflects work and decisions made by me.Josep Pal MD 11/09/24 21:25 JOSEP PAL MD Nov 09, 2024 21:17
[2024-11-09 22:11] VITALS: BP 130/80; PULSE 82; RESP 18; TEMP 98.6; O2SAT 99
[2024-11-09] MEDS: ketorolac trometh 15mg/ml vial 15 MG/ML ML IM ONE (22:11)
== END 2024-11-09 22:12 | disposition home or self-care (01) ==
LOC: ER 19:02
DX: M54.10 Radiculopathy, site unspecified (principal); Z86.718 Personal history of other venous thrombosis and embolism; Z79.899 Other long term (current) drug therapy
CPT/HCPCS: 70450; 72125; 96372; 99285; J1885; L0172